=== PATIENT | female | born 1970 | race American Indian/Alaskan Native ===

== ENCOUNTER 2021-09-08 06:16 | Day surgery (SDC) | payer MEDICAID ==
--- NOTE | 2021-08-29 10:44 | Anesthesia Consultation ---
Anesthesia Consult and Med Hx Date of service: 09/01/21 - Airway Anesthetic Teeth Evaluation: Chipped, Crowns ROM Head & Neck: Adequate Mental/Hyoid Distance: Adequate Mallampati Class: Class III Intubation Access Assessment: Probably Good - Pre-Operative Health Status ASA Pre-Surgery Classification: ASA3 Proposed Anesthetic Plan: General - Pulmonary Hx Smoking: No Hx Respiratory Symptoms: Yes (Recent URI, took Z-pack, negative COVID test) Hx Sleep Apnea: No - Cardiovascular System Hx Hypertension: No - Central Nervous System Hx Psychiatric Problems: No - Endocrine Hx Non-Insulin Dependent Diabetes: No - Hematic Hx Anemia: Yes Hx Sickle Cell Disease: No - Other Systems Hx Alcohol Use: Yes (Wine daily) Hx Cancer: No Hx Obesity: Yes
[2021-08-29 11:09] LABS: Hematocrit 41.4 % (30.3-42.9); Hemoglobin 12.9 gm/dl (10.1-14.3); Mean Corpuscular HGB Conc 31 % (30-34); Mean Corpuscular Volume 98 fl (79-97); Platelet Count 315 K/mm3 (140-440); Red Blood Count 4.24 M/mm3 (3.65-5.03); Red Cell Distribution Width 13.3 % (13.2-15.2)
[2021-08-29 11:25] LABS: Alanine Aminotransferase 15 units/L (7-56); Blood Urea Nitrogen 12 mg/dL (7-17); Calcium 9.2 mg/dL (8.4-10.2); Hemolysis Index 15
[2021-08-29 11:38] LABS: BUN/Creatinine Ratio 17
[~2021-09-08 06:16] MED LIST: ACETAMINOPHEN IV 1,000 MG/100 ML BOTTLE IV NR; BUPIVACAINE/PF (0.25%) 2.5 MG/ML 30 ML VIAL INFILTRATI ONE; ENOXAPARIN 40 MG/0.4 ML INJ SUB-Q NR; GABAPENTIN 500 MG/10 ML ORAL LIQD PO NR; LACTATED RINGERS 1,000 ML IV SCH; LIDOCAINE 1%/EPINEPHRINE 1:100,000 VIAL (20 ML) INFILTRATI ONE; MIDAZOLAM 2 MG/2 ML INJ IV NR; SCOPOLAMINE TRANSDERMAL PATCH 72 HR TD NR; SODIUM CHLORIDE 0.9% IRR 1,500 ML BOTTLE IR ONE; SODIUM CHLORIDE 0.9% IRRIG SOLN 2000 ML IR ONE; ceFAZolin/STERILE WATER 2 GM/20 ML SYRINGE IV NR; metroNIDAZOLE/NS 500 MG/100 ML 500 MG/100 ML BAG IV NR
[2021-09-08] MEDS ORDERED: SCOPOLAMINE TRANSDERMAL PATCH 72 HR TD ONE (06:43)
[2021-09-08] MEDS ORDERED: fentaNYL 100 MCG/2 ML INJ ONE (07:09)
[2021-09-08] MEDS ORDERED: BUPIVACAINE/PF (0.25%) 2.5 MG/ML 30 ML VIAL INFILTRATI ONE ×2 (07:09→08:32)
[2021-09-08] MEDS ORDERED: LIDOCAINE MPF (2%) 20 MG/1 ML VIAL 5 ML ONE (07:09)
[2021-09-08] MEDS ORDERED: propofoL 200 MG/20 ML VIAL IV ONE (07:09)
[2021-09-08] MEDS ORDERED: ROCURONIUM 50 MG/5 ML INJ IV ONE (07:09)
[2021-09-08] MEDS ORDERED: LIDOCAINE 1%/EPINEPHRINE 1:100,000 VIAL (20 ML) INFILTRATI ONE ×2 (07:09→08:32)
[2021-09-08] MEDS ORDERED: ONDANSETRON 4 MG/2 ML INJ ONE (07:12)
[2021-09-08] MEDS ORDERED: dexAMETHasone 20 MG/5 ML VIAL ONE (07:12)
[2021-09-08] MEDS ORDERED: HYDROmorphone 1 MG/1 ML INJ IV PRN (07:33)
[2021-09-08] MEDS ORDERED: ONDANSETRON 4 MG/2 ML INJ IV PRN (07:33)
--- NOTE | 2021-09-08 07:33 | Anesthesia Day of Surgery ---
Anesthesia Day of Surgery - Day of Surgery Patient Examined: Yes Patient H&P Reviewed: Yes Patient is NPO: Yes
[2021-09-08] MEDS ORDERED: PHENYLEPHRINE/NS 1,000 MCG/10 ML SYRINGE (OR USE) IV ONE (08:20)
[2021-09-08] MEDS ORDERED: SODIUM CHLORIDE 0.9% IRR 1,500 ML BOTTLE IR ONE (08:32)
[2021-09-08] MEDS ORDERED: SCOPOLAMINE TRANSDERMAL PATCH 72 HR TD SCH (10:00)
[2021-09-08] MEDS ORDERED: oxyCODONE /ACETAMINOPHEN 5-325MG TAB PO PRN (10:08)
--- NOTE | 2021-09-08 10:14 | Discharge Summary ---
Providers - Providers Date of Admission: 09/08/2021 Date of discharge: 09/08/21 Attending physician: FREDY GLASS MD Primary care physician: HIRAM SMALL Hospitalization Reason for admission: lap gastric band removal Condition: Good Procedures: lap removal of gastric banding system Hospital course: pt had an uneventful removal of gastric banding system due to significant reflux. She was discharged to home in stable condition. Disposition: HOME / SELF CARE / HOMELESS Final Discharge Diagnosis (Prints w/discharge instructions): gerd, morbid obesity Core Measure Documentation - Palliative Care Palliative Care/ Comfort Measures: Not Applicable - Core Measures Any of the following diagnoses?: none Exam - Constitutional Vitals: Temp Pulse Resp BP Pulse Ox 98.2 F 77 20 120/87 100 08/29/21 10:15 08/29/21 10:15 08/29/21 10:15 08/29/21 10:15 08/29/21 10:15 General appearance: Present: no acute distress, obese - Respiratory Respiratory effort: normal - Cardiovascular Heart Sounds: Present: S1 & S2 - Extremities Extremities: no ischemia - Abdominal General gastrointestinal: Present: other (Incisions clean dry and intact, abdomen appropriately tender to palpation.) Plan Activity: advance as tolerated Diet: advance as tolerated Wound: open to air, keep clean and dry Additional Instructions: Patient can shower. Patient to call the office to make an appointment to be seen in 2 weeks. Follow up with: HIRAM SMALL [Primary Care Provider] - 7 Days Prescriptions: oxyCODONE /ACETAMINOPHEN [Percocet 5/325] 2 tab PO Q6HR PRN #20 tablet PRN Reason: Pain
[2021-09-08] MEDS ORDERED: KETOROLAC 30 MG/1 ML INJ IV ONE (11:00)
--- NOTE | 2021-09-08 12:07 | Post Anesthesia Evaluation ---
- Post Anesthesia Evaluation Patient Participated: Yes Airway Patent: Yes Stable Respiratory Function: Yes Nausea/Vomiting: No Temp > 96.8F: Yes Pain Manageable: Yes Adequeate Hydration: Yes Anesthesia Complications: No
[2021-09-08 12:13] VITALS: BP 133/81
--- NOTE | 2021-09-08 13:47 | Operative Report ---
Operative Report Operative Report: Date: 09/08/2021 Surgeon: Yvonne Watts MD [employer] Professional surgeon: Natacha Avalos CSA, MD Preop diagnosis: 1 gastroesophageal reflux, 2 history of gastric lap banding Postop diagnosis: Same as preop Procedure: Laparoscopic removal of gastric banding system Anesthesia:GETA with TAP block Indication: Patient is a 51-year-old female with a history of laparoscopic gastric banding over 10 years ago for morbid obesity. She has been doing well but was having gastroesophageal reflux that was not improving with antacid medication. At the practice she was at previously they were unable to access her port to remove any more fluid. She had fluid removed in the past which helped relieve her symptoms. It was decided at this point to remove the the banding system from around her stomach to help improve or resolve her reflux. Details of procedure: Patient brought over suite laid in supine position. Bi lateral lower extremity SCDs were placed. General anesthesia was induced via successful and tracheal tube intubation. A Merecdes catheter was inserted under sterile technique. After antibiotics were given and a timeout were performed, a Veress needle was used to insufflate the abdomen to a pressure of 15 mmHg via a stab incision in the left upper quadrant. After which using Optiview technique a 5 mm trocar was placed just left of midline superior to the umbilicus. There was no gross injury noted to any intra-abdominal structures. For working trochars were placed under direct visualization 5 mm trochars in the right upper quadrant, epigastric, and left midabdomen. Followed by 15 mm trocar in the right midabdomen. Once this proved performed, the tubing of the banding system was easily visualized and traced to the band that was around her proximal stomach. The surrounding cicatrix was taken down with a combination of Enseal and electrocautery. Great care was taken not to injure the healthy stomach tissue. The tubing of the banding system was transected the band was unbuckled, and slipped from around the proximal stomach and removed via the 15 mm trocar. The gastrogastric sutures were taken down. An EGD was performed intraoperatively to look for any transmural injuries of which none were observed. A tap block using a total of 60 cc of 0.25% Marcaine with normal saline was injected along bilateral mid axillary line. The 50 mm trocar was closed using a #1 PDS and a suture passer device. The abdomen is and fully desufflated. Attention was then directed towards the port which is in the left upper quadrant. A skin incision was placed over the port and dissection down to the port which was easily visualized and removed from the pocket along with the remainder of the tubing that was intraperitoneal. The device was examined and found to be intact. This pocket was closed in layered fashion using 2-0 Vicryl followed by 4 Monocryl for the skin. All incisions were closed with 4 Monocryl in the skin followed by Dermabond. Patient was awoken, extubated and taken to recovery in stable condition. All counts were correct EBL: Minimal Specimen: Gastric banding system Complications: None immediate
== END 2021-09-08 11:15 | disposition home or self-care (01) ==
LOC: OR 06:16
PROVIDERS: ATTEND Surgery
DX: K21.9 Gastro-esophageal reflux disease without esophagitis (principal); E66.01 Morbid (severe) obesity due to excess calories; Z20.822 Contact with and (suspected) exposure to COVID-19; Z72.89 Other problems related to lifestyle; D64.9 Anemia, unspecified; Z79.899 Other long term (current) drug therapy; Z98.890 Other specified postprocedural states; Z98.84 Bariatric surgery status; Z68.41 Body mass index [BMI] 40.0-44.9, adult
CPT/HCPCS: 36415; 43772; 80053; 81025; 84703; 85027; 88300; J0131; J0690; J1100; J1650; J2370; J2405; J2704; J3010; J3490; J7120; J7517; U0003; 88302